=== PATIENT | female | born 1965 | race Caucasian/White ===

== ENCOUNTER 2024-01-26 17:51 | Emergency (ER) | payer SELFPAY ==
[~2024-01-26] VITALS: Ht 147.3 cm; Wt 57.2 kg
[2024-01-26 18:14] VITALS: BP 144/75; PULSE 91; RESP 14; TEMP 98.5; O2SAT 96
[2024-01-26] MEDS ORDERED: PRED20TA5 PO (19:06)
[2024-01-26] MEDS ORDERED: BENZ-300 PO (19:06)
[2024-01-26] MEDS ORDERED: ALBU0.0912 IH (19:06)
[2024-01-26 19:18] VITALS: PULSE 83; RESP 16; O2SAT 97
[2024-01-26] MEDS: ALBUTEROL SULFATE/IPRATROPIU 3 ML SOL IH ONE (19:18)
[2024-01-26] MEDS: predniSONE 20 MG TAB PO ONE (19:20)
[2024-01-26 19:52] VITALS: BP 132/76; PULSE 80; RESP 17; TEMP 98; O2SAT 97
== END 2024-01-26 19:52 | disposition home or self-care (01) ==
LOC: MED 17:51
DX: J45.901 Unspecified asthma with (acute) exacerbation (principal); F03.90 Unspecified dementia, unspecified severity, without behavioral disturbance, psychotic disturbance, mood disturbance, and anxiety; Z79.899 Other long term (current) drug therapy
CPT/HCPCS: 94640; 99283